=== PATIENT | male | born 1955 | race Caucasian/White ===

== ENCOUNTER 2021-11-06 08:07 | Day surgery (SDC) | payer MEDICARE ==
[2021-11-06] MEDS ORDERED: Nitroglycerin 50 MG/250 ML BOT 250 ML ONE (08:40)
[2021-11-06] MEDS ORDERED: Heparin 10,000 UNITS/ 10 ML VIAL ONE (08:41)
[2021-11-06] MEDS ORDERED: Adenosine 6 MG/2 ML VIAL ONE (08:41)
[2021-11-06] MEDS ORDERED: Lidocaine 1% (PF) 30 ML VIAL ONE (08:43)
[2021-11-06] MEDS ORDERED: Iopamidol 300 61% 100 ML VIAL FS ONE (08:44)
[2021-11-06 09:40] VITALS: BP 135/65; TEMP 97.6
[2021-11-06] MEDS ORDERED: Aspirin 325 MG TAB ONE (09:40)
[2021-11-06] MEDS ORDERED: Ascorbic Acid 500 mg Chewable Tablet ONE (09:40)
[2021-11-06] MEDS ORDERED: Acetylcysteine 800 MG/4 ML VIAL ONE (09:40)
[2021-11-06] MEDS ORDERED: Midazolam HCl 5 mg/5 ml Vial ONE (10:36)
[2021-11-06] MEDS ORDERED: Fentanyl 100 MCG/2 ML VIAL ONE (10:36)
[2021-11-06] MEDS ORDERED: Clopidogrel Bisulfate 300 MG TAB ONE (12:09)
== END 2021-11-06 13:51 | disposition home or self-care (01) ==
LOC: CSHSDC 08:07
PROVIDERS: ATTEND Specialist
DX: I25.118 Atherosclerotic heart disease of native coronary artery with other forms of angina pectoris (principal); Z95.1 Presence of aortocoronary bypass graft; Z95.5 Presence of coronary angioplasty implant and graft; I10 Essential (primary) hypertension; Z11.9 Encounter for screening for infectious and parasitic diseases, unspecified; E78.2 Mixed hyperlipidemia; Z28.311 Partially vaccinated for COVID-19; Z79.02 Long term (current) use of antithrombotics/antiplatelets; Z79.899 Other long term (current) drug therapy; Z79.82 Long term (current) use of aspirin
CPT/HCPCS: 93459; C1725; C1769; C1874; C1887; C9600; 92928; 99152; 99153; J0153; J1644; J2001; J2250; J3010; Q9967